=== PATIENT | male | born 2000 | race Caucasian/White ===

== ENCOUNTER 2023-04-19 06:57 | Day surgery (SDC) | payer SELFPAY ==
--- NOTE | 2023-04-16 16:53 | HP.PCM_ITS ---
History and Physical History and Physical? Patient Name: Dio Chávez : 2000 From:? TIANNA DILL PA-C? DATE OF SURGERY:? 04/19/2023 SCHEDULED PROCEDURE:? Open reduction internal fixation left radius shaft fracture HISTORY OF PRESENT ILLNESS: Preoperative history and physical exam was performed on April 16, 2023.? Dictating on 22-year-old male who comes in today for injury to the left upper extremity.? Patient states on April 12, 2023 he was at work on a 6 foot ladder.? He was on the fourth rung when the ladder slipped out underneath him causing him to fall backwards on an outstretched left arm.? He felt a snap and immediate pain.? He was treated at [facility] X-rays were determined that he had a radius fracture and he was placed in a sugar tong splint and sling.? Patient was referred to orthopedics for further treatment.? He currently denies any numbness and tingling into the fingers.? Denies hitting his head on the fall.? He has no other sites of pain other than at the fracture site of the radius.? Patient is right-hand dominant.? Patient has been using Tylenol at home for pain control.? Patient also reports that this injury is not going under Workmen's Comp.? Patient has no listed medical problems.? He has no past history of DVT or pulmonary embolism.? Denies any recent chest pain, shortness of breath, fevers chills or recent infections.? After discussion, the patient does wish to proceed with open reduction internal fixation left distal radius shaft fracture. REVIEW OF SYSTEMS: Review Of Systems: Constitutional: Denies change in appetite, fever and weight change. Cardiovasular: Denies chest pain, heart murmur and irregular heartbeat. Respiratory: Reports cough, but denies pneumonia, shortness of breath, tuberculosis and wheezing. Gastrointestinal: Denies constipation, diarrhea, heartburn, nausea, rectal itching, bloody stools and vomiting. Musculoskeletal: Denies leg swelling, pain, trouble walking and weakness. Skin: Denies Raynaud's, history of shingles and tattoo. Neurological: Reports numbness/tingling but denies ambulatory dysfunction, dizziness and tremor. Psychiatric: Denies anxiety, insomnia and stress. Hematologic/Lymphatic: Denies anemia, bleeding/bruising tendency and past transfusion. Reviewed and updated. PAST MEDICAL HISTORY: Advance Care Plan: No Advance Directives Effective Date: 04/16/2023 Past Medical History: Medical Problems: No Current Problems Accidents: Fracture - (04/12/2023) LT ARM FX? Surgical Hx: None Anesthesia Complications: None Assistive Devices: Brace Reviewed and updated. SOCIAL HISTORY: Social History: Marital: Single.Occupation: Construction - [employer] .Work Status: Injured.Hand Dominance: Right-handed. Personal Habits:? Cigarette Use: Patient is a current cigarette smoker, smokes every day, Heavy tobacco smoker (more than 10 cigarettes/day).Smokeless Tobacco: Never Used Smokeless Tobacco.E-Cigarette Use: Never used.Alcohol: Occasi onally.Drug Use: Former Illegal Drug User.Enjoy Exercising: Never Exercises. Reviewed and updated. VITALS: Ht: 67.3 Wt: 143lb Wt k.865 BMI: 22.2 BP: 128/68 Pulse: 88 Resp: 18 T: 98.0 T: 36.7C Pain Level: 4 O2SatR: 98 ALLERGIES: No Known Drug Allergy? MEDICATIONS: Percocet 5-325 mg 1-2 by mouth every 4-6 hour as needed pain, Tylenol 8 Hour 650 mg as needed, Ibuprofen 200 200 mg 4 tablets by mouth 1x/day PRE-OP EXAM:? General appearance:NORMAL? ? ? Other: Eyes: Conjunctivae and lids: NORMAL? Pupils: ERR Ears, Nose, Mouth, and Throat: NORMAL? Other: Inspection of lips, teeth and gums: NORMAL? ?Other: Neck: Examination of neck: no masses noted. Respiratory: Assessment of respiratory effort: NORMAL? ?Other: ?Auscultation of lungs: clear to auscultation no wheezes, rhonchi or rales. Cardiovascular:? Auscultation of heart: regular rate and rhythm, no murmurs, gallops or rubs. PHYSICAL EXAMINATION: On exam the sugar tong splint was removed today.? Patient does have swelling however there is no skin breakdown.? No erythema.? Small 2 mm abrasion along the volar distal one third of the wrist.? Patient was nontender to palpation left elbow.? Nontender to palpation left wrist/hand.? He had tenderness to palpation over the distal two thirds of the radius on the left.? No open abrasion or wounds.? Range of motion was deferred secondary to fracture.? Sensation was intact to light touch in axillary, radial, median, ulnar nerve distribution.? Motor intact with patient able to make okay sign, cross fingers, and thumbs up.? Capillary refills less than 2 seconds. IMAGING STUDIES: ?Previous x-rays from April 12, 2023 were reviewed from [facility] of the left forearm which shows a mildly displaced distal one third radial diaphysis fracture.? There is minimal dorsal angulation.? No appreciable fracture of the ulna.? No appreciable fracture of the left elbow.? No lytic or blastic lesions.? X-rays were discussed and reviewed with Dr. Larry Vergara IMPRESSION: 1.? Displaced left distal radius shaft fracture PLAN: I did discuss and review with the patient all treatment options including surgical versus nonsurgical options.? Patient does wish to proceed with the above-stated procedure.? Potential risks, benefits, and complications of the procedure were discussed in detail including but not limited to , infection, nerve and blood vessel damage, persistent pain, numbness, tingling, paresthesias, blood clot, pulmonary embolism, and requirement for possible further surgery.? The patient expressed full understanding and has no further questions for the doctor.? Patient does agree to proceed with the above-stated procedure and has signed the surgery consent form. POST-OP MEDICATION PLAN: Pain Medications: Patient was given prescription for Percocet 5/325 mg take 1-2 tablets every 6 hours as needed for pain control. DVT Prophylaxis: Aspirin 81 mg twice daily for 2 weeks postoperatively This dictation was created using voice recognition software. Phonetic and/or grammatical errors may exist. ___? I have re-examined the patient.? There are no clinical changes since date of exam. ___? See progress notes for changes. ___? Dictated on admission Date: ? ? ?Time: Signature:
[2023-04-19] MEDS: Lactated Ringers 1,000 ML 15 ML IV (07:28)
[2023-04-19 07:29] VITALS: BP 143/66; PULSE 70; RESP 18; TEMP 36.3; O2SAT 100; BMI 23.3
--- NOTE | 2023-04-19 07:45 | RAD_ITS ---
STUDY: X-RAY - LEFT RADIUS AND ULNA REASON FOR EXAM: Male, 22 years old. Intraoperative digital documentation views. TECHNIQUE: 2 intraoperative digital documentation view(s) of the forearm. COMPARISON: None. FINDINGS: 2 intraoperative digital documentation views show plate and screw fixation of the distal radius. RAD/Forearm 2 Views IMPRESSION: Intraoperative digital documentation views. Electronically Signed: Matt Park MD at 15:45 EDT ,
[2023-04-19] MEDS: Cefazolin 2 GM in 0.9% Normal Saline 100 ML IV (09:47)
[2023-04-19] MEDS: Bupivacaine 0.5% PF 10 ML VIAL (10:38)
[2023-04-19 11:05] VITALS: BP 136/79; BP 143/66; PULSE 76; RESP 18; TEMP 36.4; O2SAT 98
[2023-04-19 11:15] VITALS: BP 141/80; BP 143/66; PULSE 61; RESP 18; O2SAT 100
[2023-04-19 11:30] VITALS: BP 141/96; BP 143/66; PULSE 62; RESP 16; O2SAT 99
[2023-04-19 11:40] VITALS: BP 143/66; BP 156/96; PULSE 67; RESP 16; TEMP 36.2; O2SAT 100
--- NOTE | 2023-04-19 12:06 | DCINST_ITS ---
Discharge Instructions Follow Up Care Test Results: Test results from this visit will be discussed in further detail at your follow- up appointment, if applicable. Discharge Plan Admission Primary Reason for Your Visit: Left radial shaft open reduction internal fixation Attending Provider: Jose Vergara Primary Care Provider: Care Physician,Mary Primary Instructions Additional Instructions / Restrictions: Follow preprinted instructions from your surgeons office. Discharge Orders/Prescriptions Prescriptions: No Action oxycodone-acetaminophen [Percocet] 5-325 mg Tablet 1 tab PO Q6H PRN (Reason: Pain) Referrals / Follow Up: Jose Vergara DO [Med Staff - Active Staff] - Care Physician,No Primary [Primary Care Provider] - Disposition Disposition (needs filled in before D/C Order can be placed): Home, Self Care
[2023-04-19] MEDS: Oxycodone/Apap 5/325 Tablet PO (12:25)
[2023-04-19 12:50] VITALS: BP 143/66; BP 147/54; PULSE 66; RESP 16; TEMP 36.9; O2SAT 100
--- NOTE | 2023-04-19 17:23 | PCM.OPRPT ---
Report of Operation Date of Procedure: 04/19/23 Description of Surgical Findings:: Preoperative diagnosis: Left distal third radial shaft fracture Postoperative diagnosis: Left distal third radial shaft fracture Procedure: Open reduction internal fixation left radius Surgeon: Jose Vergara DO Math Coach: Jolene Bhatt PA-C Anesthesia: General endotracheal Diabetic Educator: Macho Rey CRNA Complications: None Drains: None Estimated blood loss: 10 cc Urinary output: None recorded IV fluids: 1 L crystalloid Specimens: None Surgical implants: 8 hole 3.5 mm [employer]ynthe[employer] LCDC plate Surgical indications: This is an otherwise healthy 22-year-old male seen in the outpatient setting after a fall off a ladder approximately 1 week ago. He was seen in the outpatient setting where x-rays revealed a displaced radial shaft fracture. He was previously seen in outside emergency department. He was splinted at that time. I saw the patient in the office. I explained the importance of achieving anatomic reduction of the radius for forearm function. I recommended surgical invention in the form of left radial shaft open reduction internal fixation. The risk, benefits, terms the procedure reviewed with patient at length and he agreed to proceed. Risk include but were not limited to bleeding, infection, loss of life or limb, need for additional surgery, persistent pain, stiffness, nonhealing bone or wounds, neurovascular injury, wound complications, DVT or PE. Informed sent obtained in the outpatient setting. Description of procedure: Patient was seen in preoperative holding area. He was identified by name, medical record number, date of . The operative extremity was marked with a surgical marker. We confirmed informed consent with the patient and all questions were answered to his satisfaction. At time of his procedure, patient was brought to the operative suite and positioned supine on a standard operating table. All bony prominences were well-padded. General anesthesia was administered. After adequate anesthesia, a well-padded pneumatic tourniquet was applied to the upper arm of the operative extremity. We then spun the bed 90 degrees. We prepped and draped the operative extremity in a normal, sterile orthopedic fashion. We then performed a timeout with all parties in attendance in agreement the side, site, and operation be performed. No concerns were voiced and we elected to proceed. 2 g Ancef was administered for antibiotic prophylaxis prior to the incision by anesthesia staff. I first exsanguinated the operative extremity with an Esmarch bandage. Tourniquet was inflated to 250 mmHg which remained up for 29 minutes. Esmarch was removed. I planned volar Francis approach over the flexor carpi radialis tendon along the volar wrist. Skin was sharply incised with a 15 blade scalpel down to the level of the tendon sheath. The FCR tendon sheath was identified and split longitudinally in line with the incision. I then retracted the FCR tendon ulnarly, split the floor of the tendon sheath in line with the incision. The flexor pollicis longus muscle belly was then encountered and retracted ulnarly. I extended the incision proximally after fracture site was encountered. I visualized the radial neurovascular bundle but did not need to cross it proximally based on fracture location. The distalmost extent of the pronator teres was encountered and gently elevated, approximately 1 cm. Fracture site was then opened and debrided of fracture hematoma and early callus. I utilized a pointed reduction clamp to achieve anatomic reduction of the fracture site. An 8 hole LCDC plate was selected. A neutral cortical screw was placed distally in the plate compressing the plate to bone. I then placed 2 eccentric compression screws in the proximal segment achieving compression across fracture site. Additional bicortical cortex screws were placed proximal and distal the fracture site achieving 3 bicortical cortical screws proximal and distal to the fracture site. The DRUJ was then stressed and was stable. Tourniquet was deflated. A field block was administered with 20 cc total of 0.5% plain bupivacaine. Wound was copiously irrigated with normal saline solution. Hemostasis was excellent. We reapproximated the dermis with interrupted simple buried 2-0 Vicryl suture. Skin was finally reapproximated with interrupted simple 3-0 nylon suture. A sterile compression dressing was applied. A well-padded volar short arm fiberglass splint was applied. Patient was then awoken the operative suite and safely extubated. He was transferred to his gurney and subsequently to PACU in stable condition. Need for skilled assistant superintendent for curriculum: Jolene Bhatt PA-C was critical to the outcome of the case. During the course of the procedure the physician assistant superintendent for curriculum played a vital role. Her intimate knowledge of my steps in the procedure aided in safe and expedient completion of the procedure. The PA played a vital role in positioning particularly in obtaining the appropriate positioning. The PA was also vital in the retraction of soft tissues during the exposure and protecting vital structures. The PA was also vital and obtaining fracture reduction and assisting with hardware placement. She also played a vital role in closure and splint application with my direct supervision. Post Operative Plan: Weightbearing: Nonweightbearing operative extremity Antibiotics: 2 g Ancef x 1 dose preoperatively DVT Prophylaxis: Aspirin 81 mg twice daily starting postoperative day number 1 x 14 days George: None Dressing: Maintain splint, keep it clean dry and intact until follow-up X-Rays: 2 weeks postop in the office out of splint Pain Medication: Narcotic pain prescription provided as an outpatient, encouraged Tylenol and ibuprofen. Follow-up: 2 weeks post-operatively with me in the office
== END 2023-04-19 13:12 | disposition home or self-care (01) ==
LOC: SDC 07:04 → AC 07:04
PROVIDERS: Referring Provider Student in an Organized Health Care Education/Training Program; Visit Provider Student in an Organized Health Care Education/Training Program
DX: S52.502A Unspecified fracture of the lower end of left radius, initial encounter for closed fracture (principal); F17.210 Nicotine dependence, cigarettes, uncomplicated; F12.90 Cannabis use, unspecified, uncomplicated; W11.XXXA Fall on and from ladder, initial encounter; Y93.89 Activity, other specified; Y99.0 Civilian activity done for income or pay; Y92.89 Other specified places as the place of occurrence of the external cause
CPT/HCPCS: 25607; 01830; 73090; 76000; C1713; J7120; J2405